=== PATIENT | male | born 1965 ===

== ENCOUNTER → 2022-12-25 08:20 | Outpatient (CLI) | payer OTHER, SELFPAY ==
--- NOTE | ~2022-12-25 | CT_ITS ---
EXAMINATION: CT sinus wo con DATE: 12/25/2022 08:34 INDICATION: Chronic sinusitis TECHNIQUE: Computed tomography (CT) of the paranasal sinuses was performed without intravenous contra st. The dose-length product (DLP) was 315.40 mGy-cm. Iterative reconstruction was used. COMPARISON: None FINDINGS: There is normal development and pneumatization of the paranasal sinuses. There is mild muco raquel thickening of the ethmoidal air cells, the left sphenoid sinus, and the left maxillary sinus. The re is minimal opacification of the right mastoid air cells. There is a polyp or mucous retention cyst s involving the middle meatus on the left. The frontal sinuses, right sphenoid sinus, and right maxil mimi sinus are clear. 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 The bilat eral ostiomeatal complexes are patent. Visualized soft tissues are unremarkable. IMPRESSION: 1. Sinus disease as above. Reviewed, dictated and finalized at location B. IMPRESSION: 1. Sinus disease as above.
== END ==
PROVIDERS: PCP Otolaryngology; Visit Provider Otolaryngology
DX: J32.9 Chronic sinusitis, unspecified (principal)
CPT/HCPCS: 70486

== ENCOUNTER 2023-01-25 08:00 | Outpatient (RCR) | payer OTHER, SELFPAY ==
--- NOTE | 2022-12-28 11:46 | OPREHPOC ---
Outpatient Therapy Plan of Care This is a Multidisciplinary Plan of Care that may contain components documented by all disciplines (PT, OT, and ST.) PT Problem 1 PT Problem #1 Knowledge Deficit PT Goal 1 Goal Independent with HEP Target Visit 6 PT Problem 2 PT Problem #2 Impaired Vestibular Syste PT Goal 1 Goal Decrease dizziness time getting out of bed from 5- 10 minutes to 1-2 minutes. Target Visit 6 PT Goal 2 Goal Patient to report no dizziness with quick head turns.
--- NOTE | 2022-12-28 11:46 | PTOPEVAL1 ---
Assessment and note entered by Valentin Danielson, PT Evaluation Information Assessment Status Evaluation Diagnosis Aural vertigo Subjective Information Patient reports coming back from a cruise and on the plane ride back had a massive case of vertigo resulting in N/V and feeling like the world was spinning. Patient unable to walk off the plane and needed to be transported off the plane. Patient has seen his doctor and an ENT since then and found out the have a recurrent sinus infection . Patient has taken antibiotics, steroids, and other preventative measures to help out his sinuses, but still having dizziness every morning for 5 to 10 minutes. Nothing as severe as prior, but still slowing him down and make him nervous he is going to fall. Reported Pain Level Pain Score 0: Self Report Assessment PT Clinical Summary Jeramy is a 57 year old male coming into the clinic with a diagnosis of Aural Vertigo. The patient has negative ocular motor signs with smooth pursuit, saccades, thrust test, and VOR along with no nystagmus or dizziness with Tremaine Hallpike to the L or R. Patient does have some higher end balance issues and reported dizziness with head movements. Suggest doing more therapy to work on habituation along with reasees for B.P.P.V. Plan of Care Interventions Electrical Stimulation,Gait Training,Hot Pack/Cold Pack,Manual Therapy,Neuro Re-education,Patient/ Caregiver Education,Therapeutic Activities, Therapeutic Exercise,Ultrasound PT Services Indicated Yes Treatment Frequency and 1-2x/wk for 4 weeks Duration These treatments will address the objective and functional deficits as defined above. The patient will be advanced safely and appropriately in order for the patient to progress towards his/her prior level of function. Additional exercises will be introduced and as well as a comprehensive home exercise program upon discharge, if needed, ?to ensure carryover of functional gains achieved in the clinic. This treatment plan has been reviewed and agreement upon by the patient.
--- NOTE | 2023-01-25 08:16 | PTOPDC ---
Assessment and note entered by Valentin Danielson, PT Evaluation Information Assessment Status Discharge Diagnosis Aural Vertigo Subjective Information Patient reports his symptoms have decreased in both duration and frequency. Patient also reports he is independent in his clearing maneuvers if he does have increase in symptoms. Patient feels okay with with discharge from skilled physical therapy. Patient does report he has a sinus infection so he is on the lookout for potential increase in symptoms the next few days. Reported Pain Level Pain Score 0: Self Report Assessment PT Clinical Summary Jeramy is a 57 year old male coming into the clinic with a diagnosis of Aural vertigo. Patient has decreased in symptoms and is educated on clearing techniques along with further balance activities to strengthen the vestibular system. Discharged from skilled physical therapy. Plan of Care PT Services Indicated No
== END 2023-03-12 10:16 | disposition home or self-care (01) ==
LOC: ANHPT 08:00
PROVIDERS: PCP Otolaryngology; Visit Provider Otolaryngology
DX: H81.319 Aural vertigo, unspecified ear (principal)
CPT/HCPCS: 97110; 97112; 97116; 97140; 97161; 97530